=== PATIENT | female | born 1945 | race Caucasian/White ===

== ENCOUNTER 2018-03-14 11:02 | Emergency (ER) | payer MEDICARE ==
[~2018-03-14] VITALS: Ht 152.4 cm; Wt 51.3 kg
[2018-03-14] MEDS ORDERED: LEXAPRO10 MG PO (12:00)
[2018-03-14] MEDS ORDERED: ARMOUR THYROID60 MG PO (12:00)
[2018-03-14] MEDS ORDERED: NEURONTIN400 MG (12:01)
[2018-03-14] MEDS ORDERED: PRIMAQUINE (12:02)
[2018-03-14] MEDS ORDERED: INDERAL LA60 MG (12:03)
[2018-03-14 12:28] VITALS: BP 109/52
--- OUTSIDE RECORDS SUMMARY | 2018-06-22 14:31 | XMS REPORT ---
[facility] Address Unknown Phone Unavailable Care Team Providers Care Hop Weigher Name Role Phone Bishop Tian Unavailable Unavailable Jhonatan Badillo Unavailable Unavailable Problems This patient has no known problems. Allergies, Adverse Reactions, Alerts This patient has no known allergies or adverse reactions. Medications This patient has no known medications. Results Test Description Test Time Test Comments Text Results Atomic Results Result Comments DEXA, BONE DENSITY AXIAL [facility] 2018-05-31 00:00:00 [place] [address] RADIOLOGY SERVICES REPORT Name: SOFIE PERSAUD Acct Number: [id number] : Age:72 Sex:F Ord Phys: Bishop Tian MD Unit Number: [id number] [facility] [address]: Status: REG REF RAD Exam Date: 05/30/18 Indication: postmenopausal ; screening for osteoporosis; parental hip fracture; height loss; hysterectomy; Clinical Information Provided by Patient: Parent has had a hip fracture Has used the following medications: Actonel (i.e. risedronate), Fosamax ( i.e. alendronate), HRT (i.e. estrogen/hormone therapy), used these in the past, patient not currently on any bone building medication. Has the following medical conditions: Hysterectomy Patient maximum height was 60.0 Menopause Age 44 Onset of menses at age 15 Number of children 3 Bone Density: Exam date 05/30/2018 BMD Region (g/cm2) T-score Z- Score Classification AP Spine (L1-L4) 0.730 -2.9 -0.7 Osteoporosis Femoral Neck (Left) 0.589 -2.3 -0.5 Osteopenia Total Hip (Left) 0.686 -2.1 -0.5 Osteopenia World Health Organization criteria for BMD impression classify patients as normal (T-score at or above -1.0), Osteopenia (T-score between -1.0 and -2.5), or Osteoporosis (T-score at or below -2.5 10-year Fracture Risk: FRAX not reported because: Some T-score for Spine Total or Hip Total or Femoral Neck at or below -2.5 Impression: The patient osteoporosis, based on the Total Spine T-score. The patient has risk factors, including: Parental hip fracture. Discussion: INCREASED RISK OF FRACTURE. BONE DENSITY IS UNDESIRABLY LOW AT ONE OR MORE SKELETAL SITES, CONSISTENT WITH POSTMENOPAUSAL OSTEOPOROSIS. This patients lowest T-score meets the World Health Organizations (WHO) criteria for osteoporosis at one or more sites (T-score - 2.5 or below). In untreated patients, the risk of osteoporotic fracture increased approximately two-fold for each 1.0 SD decreased in T-score. Low bone density is not the only risk factor for fracture; also consider factors such as patients age, frailty or poor health, risk of falling, risk of injury, previous osteoporotic fracture, family history of osteoporosis, cigarette smoking, low body weight, etc. Not everyone with low bone mineral density has osteoporosis; osteomalacia and other metabolic bone disorders should also be considered. Patients who have osteoporosis should be evaluated for specific diseases and conditions (secondary causes) that may cause or contribute to bone loss. The [employer] [employer] ([employer]), and National Osteoporosis Foundation (NOF) recommend pharmacologic intervention for all postmenopausal women whose T-score is in this range. The patient should follow a healthful lifestyle (good nutrition with adequate calcium and vitamin D, and appropriate weight bearing exercise.) Follow-Up: Consider a repeat BMD and Vertebral Fracture Assessment (VFA) exam in 2 years or sooner if medically necessary to reassess this patients status. Reported by: Dr. Menjivar on 05/30/2018 at 1:09:00 PM Signed By: Cristhian Menjivar MD Signed AT: 06/02/18 1329 C Spine Ap/Lat 2018-03-08 13:24:00 [place] [address] RADIOLOGY SERVICES REPORT Name: SOFIE PERSAUD Acct Number: [id number] :1945 Age:72 Sex:F Ord Phys: Jhonatan Badillo MD Unit Number: [id number] [facility] [address]: Status: REG REF RAD Exam Date: 03/08/18 EXAM DESCRIPTION: RAD - C Spine Ap/Lat - 03/08/2018 12: 41 pm CLINICAL HISTORY: M54.12 COMPARISON: None. FINDINGS: Cervical bodies are normal in height and alignment. No fracture or acute bony process seen. Underlying osteopenic changes are present. Posterior aspect of the C3-4 disc space is narrowed. There is disc space narrowing and endplate spurring changes at C5-6. Facet degenerative change present at C3-4 and C7-T1. There is no prevertebral soft tissue thickening or other suspicious soft tissue finding. Carotid bulb calcifications on the left. IMPRESSION : Cervical spine degenerative changes are present as detailed. No acute findings seen. Signed By: Grabiel Ruiz MD Signed AT: 03/08/18 0062
--- OUTSIDE RECORDS SUMMARY | 2018-06-22 14:31 | XMS REPORT | Clinical Summary ---
Author Author [facility] Address Unknown Phone Unavailable Care Team Providers Care Director [employer] Name Role Phone Tod Badillo MD PCP Allergies Not on File Current Medications Not on file Active Problems Not on file Encounters Date Type Specialty Care Team Description 12/08/2017 [facility]iology Cy Badillo MD Encounter 12/08/2017 [facility] Radiology Cy Badillo MD Tremor Encounter 12/06/2017 [facility] Jhonatan Badillo MD Tremor ( Primary Dx) Orders after 03/13/2017 Social History Tobacco Use Types Packs/Day Years Used Date Never Assessed Sex Assigned at Date Recorded Not on file Last Filed Vital Signs Not on file Plan of Treatment Health Maintenance Due Date Last Done Comments BREAST CANCER SCREENING 1997 COLON CANCER SCREENING 1997 SHINGRIX VACCINE (#1) 1997 ZOSTER VACCINE 2007 PNEUMOCOCCAL 2012 POLYSACCHARIDE VACCINE AGE 65 AND OVER PNEUMOCOCCAL-13 2012 INFLUENZA VACCINE 04/20/2018 Procedures Procedure Name Priority Date/Time Associated Diagnosis Comments NM BRAIN SPECT W I 123 Routine 12/08/2017 Tremor Results for this DATSCAN 2:36 PM CDT procedure are in the results section. after 03/13/2017 Results * NM Brain Spect W I 123 Datscan (12/08/2017 2:36 PM) Narrative Performed At PROCEDURE: NM BRAIN SPECT W I 123 DATSCAN RADIANT INDICATION: Tremor. TECHNIQUE: The patient was pretreated with potassium iodide drops for thyroid protection and then injected with 4 mCi of I-123 DaTscan IV. Brain SPECT imaging was then performed. FINDINGS: Normal uptake is seen in the bilateral striata. IMPRESSION: 1. Normal study. No evidence for an underlying primary Parkinsonian syndrome. [facility]-[id number] Procedure Note Interface, Radiology Results Incoming - 12/08/2017 5:45 PM CDT PROCEDURE: NM BRAIN SPECT W I 123 DATSCAN INDICATION: Tremor. TECHNIQUE: The patient was pretreated with potassium iodide drops for thyroid protection and then injected with 4 mCi of I-123 DaTscan IV. Brain SPECT imaging was then performed. FINDINGS: Normal uptake is seen in the bilateral striata. IMPRESSION: 1. Normal study. No evidence for an underlying primary Parkinsonian syndrome. [facility]-[id number] Performing Organization Address City/State/Zipcode Phone Number [facility] [address] [place] [address] after 03/13/2017 Insurance Payer Benefit Subscriber ID Type Phone Address Plan / Group MEDICARE MEDICARE xxxxxxxxxx Medicare [place], [place] PART A AND B
== END 2018-03-14 12:26 | disposition home or self-care (01) ==
LOC: FSED 11:02
DX: J01.00 Acute maxillary sinusitis, unspecified (principal); J30.1 Allergic rhinitis due to pollen
CPT/HCPCS: 99282